=== PATIENT | male | born 1980 | race Caucasian/White ===

== ENCOUNTER → 2023-05-17 12:04 | Outpatient (CLI) | payer BC, SELFPAY ==
--- NOTE | 2023-05-17 | DI.MRI.S_ITS ---
PROCEDURE: MR BRAIN (PITUITARY) WWO CON INDICATIONS: Hypogonadism TECHNIQUE: Noncontrast sagittal and axial FLAIR, axial gradient echo, axial diffusion and ADC through the brain. Thin-slice sagittal and coronal T1 spin echo, coronal T2 fast spin echo through the pituitary. After the administration contrast, optional dynamic coronal T1 spin echo, thin-slice coronal and sagittal T1 spin echo images through the pituitary fossa; axial and coronal and sagittal T1 spin echo with fat saturation through the brain. COMPARISON: None. FINDINGS: Image quality: Excellent. Pituitary Gland: The pituitary gland is normal in size and appearance. No pituitary lesions are identified. The pituitary stalk is midline. CSF Spaces: Ventricles are normal in size and shape. Basal cisterns are patent. No extra-axial fluid collections. Brain: No intracranial bleeds or mass effects. No abnormal intracranial enhancement. Edwards-white matter interface is intact. Scattered T2/FLAIR hyperintensities within the white matter bilaterally. Diffusion weighted images demonstrate no acute ischemic insults. Brainstem is normal. Normal intravascular flow voids are present. Skull and face: Calvarial marrow is normal in signal. Orbits appear normal. Sinuses: Sinuses and mastoids are clear. IMPRESSION: 1. The pituitary gland is normal in size and appearance. No pituitary adenomas are identified. 2. Scattered T2/FLAIR hyperintensities within the cerebral white matter bilaterally are nonspecific. Findings may represent early chronic microvascular ischemic changes. These do not have the typical appearance of a demyelinating process, however clinical correlation is recommended. 3. No acute intracranial abnormalities. Dictated by: Gagan Gómez M.D. on 05/17/2023 at 14:04 Approved by: Gagan Gómez M.D. on 05/17/2023 at 14:09
== END ==
PROVIDERS: PCP Registered Nurse; Referring Provider Registered Nurse; Visit Provider Registered Nurse
DX: E29.1 Testicular hypofunction (principal)
CPT/HCPCS: 70553